=== PATIENT | male | born 1965 | race Caucasian/White ===

== ENCOUNTER 2021-06-07 10:50 | Inpatient (IN) | payer OTHER ==
[2021-06-07 11:24] VITALS: BMI 32.1
[2021-06-07] MEDS ORDERED: ONDANSETRON *ODT* 4 MG TABLET SL PRN (14:46)
[2021-06-07] MEDS ORDERED: MAGNESIUM HYDROX 2400MG/30ML ORAL SUSPENSION 30 ML CUP PO PRN (14:46)
[2021-06-07] MEDS ORDERED: ACETAMINOPHEN 325 MG TABLET (FP) PO PRN ×2 (14:46)
[2021-06-07] MEDS ORDERED: BISMUTH SUBSALICYLATE 524 MG/30 ML PO PRN (14:46)
[2021-06-07] MEDS ORDERED: MAGNESIUM CITRATE 300 ML BOTTLE PO PRN (14:46)
[2021-06-07] MEDS ORDERED: MAG HYDROX/AL HYDROX/SIMETH 30 ML UNIT-DOSE CUP PO PRN (14:46)
[2021-06-07] MEDS ORDERED: MENTHOL/PHENOL 1 EACH UD MM PRN (14:46)
[2021-06-07] MEDS ORDERED: IBUPROFEN 400 MG TABLET (FP) PO PRN (14:46)
[2021-06-07] MEDS: hydrOXYzine PAMOATE 25 MG CAPSULE (FP) PO SCH ×2 (17:17→22:18)
[2021-06-07] MEDS: diazePAM 5 MG TABLET PO SCH ×2 (17:17→22:18)
[2021-06-07] MEDS: MELATONIN 5 MG TABLETS PO SCH (22:17)
[2021-06-07] MEDS: THIAMINE HCL 100 MG TABLET (FP) PO SCH (22:17)
[2021-06-08] MEDS ORDERED: methaDONE HCL 40 MG DISPERSABLE TABLET ONE (04:22)
[2021-06-08] MEDS ORDERED: methaDONE HCL 10 MG TABLET ONE (04:22)
[2021-06-08] MEDS: hydrOXYzine PAMOATE 25 MG CAPSULE (FP) PO SCH ×5 (05:20→22:27)
[2021-06-08] MEDS: diazePAM 5 MG TABLET PO SCH ×4 (05:20→22:27)
[2021-06-08] MEDS ORDERED: methaDONE HCL 10 MG TABLET PO SCH (06:00)
[2021-06-08] MEDS: PRENATAL VITAMINS W/ FOLIC ACID TABLET (FP) PO SCH (10:23)
[2021-06-08] MEDS ORDERED: PNEUMOCOCCAL 23 VACCINE 0.5 ML VIAL IM ONE (12:00)
[2021-06-08] MEDS ORDERED: PNEUMOC 13-VAL CONJ-DIP CRM/PF 0.5 ML DISP.SYRIN IM ONE (12:00)
[2021-06-08 14:58] LABS: HEMATOCRIT 41.6 % (35.4-49); HEMOGLOBIN 14.4 GM/dL (11.7-16.9); MCHC 34.6 g/dl (32.0-35.9); MEAN CELL VOLUME 89.4 fl (80-96); MEAN PLT VOLUME 9.6 fl (7.5-11.1); PLATELET COUNT 192 10^3/uL (134-434); RBC 4.65 M/mm3 (4.00-5.60); RDW 14.6 % (11.9-15.9); WHITE BLOOD COUNT 6.9 K/mm3 (4.0-10.0)
[2021-06-08 15:04] LABS: CALCIUM 9.1 mg/dL (8.5-10.1)
[2021-06-08 15:05] LABS: ALBUMIN 3.8 g/dl (3.4-5.0)
[2021-06-08 15:09] LABS: BILIRUBIN,TOTAL 0.3 mg/dL (0.2-1)
[2021-06-08 15:10] LABS: TOT PROT 7.4 g/dl (6.4-8.2)
[2021-06-08] MEDS: METHOCARBAMOL 500 MG TABLET PO PRN (21:00)
[2021-06-08] MEDS: MELATONIN 5 MG TABLETS PO SCH (22:27)
[2021-06-08] MEDS: THIAMINE HCL 100 MG TABLET (FP) PO SCH (22:27)
[2021-06-09] MEDS ORDERED: methaDONE HCL 40 MG DISPERSABLE TABLET ONE (04:23)
[2021-06-09] MEDS ORDERED: methaDONE HCL 10 MG TABLET ONE (04:23)
[2021-06-09] MEDS: METHOCARBAMOL 500 MG TABLET PO PRN ×2 (05:23→17:40)
[2021-06-09] MEDS: hydrOXYzine PAMOATE 25 MG CAPSULE (FP) PO SCH ×5 (05:23→22:24)
[2021-06-09] MEDS: diazePAM 5 MG TABLET PO SCH ×3 (05:23→22:24)
[2021-06-09] MEDS: PRENATAL VITAMINS W/ FOLIC ACID TABLET (FP) PO SCH (10:29)
[2021-06-09] MEDS: diazePAM 5 MG TABLET PO PRN (17:41)
[2021-06-09] MEDS: MELATONIN 5 MG TABLETS PO SCH (22:24)
[2021-06-09] MEDS: THIAMINE HCL 100 MG TABLET (FP) PO SCH (22:24)
[2021-06-10] MEDS ORDERED: methaDONE HCL 10 MG TABLET ONE (05:05)
[2021-06-10] MEDS ORDERED: methaDONE HCL 40 MG DISPERSABLE TABLET ONE (05:05)
[2021-06-10] MEDS: hydrOXYzine PAMOATE 25 MG CAPSULE (FP) PO SCH ×5 (05:26→22:06)
[2021-06-10] MEDS: diazePAM 5 MG TABLET PO SCH ×2 (05:26→17:47)
[2021-06-10] MEDS: PRENATAL VITAMINS W/ FOLIC ACID TABLET (FP) PO SCH (10:06)
[2021-06-10] MEDS: diazePAM 5 MG TABLET PO PRN (10:07)
[2021-06-10] MEDS: THIAMINE HCL 100 MG TABLET (FP) PO SCH (22:07)
[2021-06-10] MEDS: METHOCARBAMOL 500 MG TABLET PO PRN (22:07)
[2021-06-10] MEDS: MELATONIN 5 MG TABLETS PO SCH (22:07)
[2021-06-11] MEDS ORDERED: methaDONE HCL 40 MG DISPERSABLE TABLET ONE (04:34)
[2021-06-11] MEDS ORDERED: methaDONE HCL 10 MG TABLET ONE (04:34)
[2021-06-11] MEDS: hydrOXYzine PAMOATE 25 MG CAPSULE (FP) PO SCH (05:13)
[2021-06-11] MEDS ORDERED: diazePAM 5 MG TABLET PO ONE (06:00)
[2021-06-11 09:13] VITALS: BP 127/72; PULSE 84; TEMP 96.8
== END 2021-06-11 10:03 | disposition home or self-care (01) | DRG 773 ==
LOC: YASAS 10:50 → Y3N 14:57
PROVIDERS: ADMIT Allergy & Immunology; ATTEND Allergy & Immunology
PROC: HZ2ZZZZ Detoxification Services for Substance Abuse Treatment (ICD-10-PCS; principal; 2021-06-07)
DX: F10.230 Alcohol dependence with withdrawal, uncomplicated (principal); F13.20 Sedative, hypnotic or anxiolytic dependence, uncomplicated; F11.20 Opioid dependence, uncomplicated; F19.280 Other psychoactive substance dependence with psychoactive substance-induced anxiety disorder; F51.05 Insomnia due to other mental disorder; F41.9 Anxiety disorder, unspecified
CPT/HCPCS: 36415; 80053; 85027; 86780; C9803; U0003; U0005

== ENCOUNTER 2022-03-11 12:41 | Inpatient (IN) | payer OTHER ==
[2022-03-11 13:33] VITALS: BMI 27.3
[2022-03-11] MEDS ORDERED: MAG HYDROX/AL HYDROX/SIMETH 30 ML UNIT-DOSE CUP PO PRN (15:35)
[2022-03-11] MEDS ORDERED: IBUPROFEN 400 MG TABLET (FP) PO PRN (15:35)
[2022-03-11] MEDS ORDERED: LOPERAMIDE HCL 2 MG CAPSULE PO PRN (15:35)
[2022-03-11] MEDS ORDERED: ONDANSETRON *ODT* 4 MG TABLET SL PRN (15:35)
[2022-03-11] MEDS ORDERED: MAGNESIUM HYDROX 2400MG/30ML ORAL SUSPENSION 30 ML CUP PO PRN (15:35)
[2022-03-11] MEDS ORDERED: MAGNESIUM CITRATE 300 ML BOTTLE PO PRN (15:35)
[2022-03-11] MEDS ORDERED: BISMUTH SUBSALICYLATE 262 MG/15 ML BTL PO PRN (15:35)
[2022-03-11] MEDS ORDERED: NICOTINE 10 MG CARTRIDGE (INHALER) IH PRN (15:35)
[2022-03-11] MEDS ORDERED: BENZOCAINE/MENTHOL (CHLORASEPTIC ) LOZENGE MM PRN (15:35)
[2022-03-11] MEDS ORDERED: ACETAMINOPHEN 325 MG TABLET (FP) PO PRN (15:35)
[2022-03-11] MEDS ORDERED: DICYCLOMINE HCL 10 MG CAPSULE PO PRN (15:35)
[2022-03-11] MEDS: hydrOXYzine PAMOATE 25 MG CAPSULE (FP) PO SCH ×2 (18:18→22:45)
[2022-03-11] MEDS: PRENATAL VITAMINS W/ FOLIC ACID TABLET (FP) PO SCH (18:18)
[2022-03-11] MEDS: diazePAM 5 MG TABLET PO SCH (22:45)
[2022-03-11] MEDS: MELATONIN 5 MG TABLETS PO SCH (22:45)
[2022-03-11] MEDS: THIAMINE HCL 100 MG TABLET (FP) PO SCH (22:45)
[2022-03-12] MEDS: diazePAM 5 MG TABLET PO SCH ×4 (05:41→22:18)
[2022-03-12] MEDS: hydrOXYzine PAMOATE 25 MG CAPSULE (FP) PO SCH ×5 (05:41→22:17)
[2022-03-12] MEDS ORDERED: methaDONE HCL 10 MG TABLET PO SCH (09:30)
[2022-03-12] MEDS: PRENATAL VITAMINS W/ FOLIC ACID TABLET (FP) PO SCH (10:11)
[2022-03-12 12:01] LABS: HEMATOCRIT 39.8 % (35.4-49); HEMOGLOBIN 13.4 GM/dL (11.7-16.9); MCH 29.8 pg (25.7-33.7); MCHC 33.6 g/dl (32.0-35.9); MEAN CELL VOLUME 88.6 fl (80-96); MEAN PLT VOLUME 9.2 fl (7.5-11.1); PLATELET COUNT 192 10^3/uL (134-434); RDW 13.5 % (11.9-15.9); WHITE BLOOD COUNT 4.6 K/mm3 (4.0-10.0)
[2022-03-12 12:18] LABS: ALBUMIN 3.3 g/dl (3.4-5.0); BLOOD UREA NITROGEN 14.8 mg/dL (7-18)
[2022-03-12 12:21] LABS: CREATININE 0.9 mg/dL (0.55-1.3)
[2022-03-12 12:23] LABS: BILIRUBIN,TOTAL 0.6 mg/dL (0.2-1); TOT PROT 6.8 g/dl (6.4-8.2)
[2022-03-12] MEDS: MIRTAZAPINE 15 MG TABLET (FP) PO SCH (22:17)
[2022-03-12] MEDS: THIAMINE HCL 100 MG TABLET (FP) PO SCH (22:17)
[2022-03-12] MEDS: MELATONIN 5 MG TABLETS PO SCH (22:18)
[2022-03-13] MEDS: diazePAM 5 MG TABLET PO SCH ×3 (05:14→22:14)
[2022-03-13] MEDS: hydrOXYzine PAMOATE 25 MG CAPSULE (FP) PO SCH ×5 (05:14→22:13)
[2022-03-13] MEDS: PRENATAL VITAMINS W/ FOLIC ACID TABLET (FP) PO SCH (10:25)
[2022-03-13] MEDS: diazePAM 5 MG TABLET PO PRN ×2 (10:26→17:39)
[2022-03-13] MEDS: busPIRone HCL 10 MG TABLET (FP) PO SCH (10:26)
[2022-03-13] MEDS: MIRTAZAPINE 15 MG TABLET (FP) PO SCH (22:13)
[2022-03-13] MEDS: MELATONIN 5 MG TABLETS PO SCH (22:13)
[2022-03-13] MEDS: THIAMINE HCL 100 MG TABLET (FP) PO SCH (22:13)
[2022-03-14] MEDS: hydrOXYzine PAMOATE 25 MG CAPSULE (FP) PO SCH ×5 (05:55→22:57)
[2022-03-14] MEDS: diazePAM 5 MG TABLET PO SCH ×2 (05:55→17:43)
[2022-03-14] MEDS: busPIRone HCL 10 MG TABLET (FP) PO SCH (10:27)
[2022-03-14] MEDS: PRENATAL VITAMINS W/ FOLIC ACID TABLET (FP) PO SCH (10:27)
[2022-03-14] MEDS: diazePAM 5 MG TABLET PO PRN (10:28)
[2022-03-14] MEDS: IBUPROFEN 600 MG TABLET (FP) PO PRN (12:48)
[2022-03-14] MEDS: ACETAMINOPHEN 325 MG TABLET (FP) PO PRN (17:44)
[2022-03-14] MEDS: THIAMINE HCL 100 MG TABLET (FP) PO SCH (22:57)
[2022-03-14] MEDS: MELATONIN 5 MG TABLETS PO SCH (22:57)
[2022-03-14] MEDS: METHOCARBAMOL 500 MG TABLET PO PRN (22:57)
[2022-03-14] MEDS: MIRTAZAPINE 15 MG TABLET (FP) PO SCH (22:57)
[2022-03-15] MEDS: hydrOXYzine PAMOATE 25 MG CAPSULE (FP) PO SCH ×5 (05:43→22:16)
[2022-03-15] MEDS ORDERED: diazePAM 5 MG TABLET PO ONE ×2 (06:00→22:00)
[2022-03-15] MEDS: busPIRone HCL 10 MG TABLET (FP) PO SCH (10:28)
[2022-03-15] MEDS: PRENATAL VITAMINS W/ FOLIC ACID TABLET (FP) PO SCH (10:28)
[2022-03-15] MEDS: ACETAMINOPHEN 325 MG TABLET (FP) PO PRN (10:52)
[2022-03-15 12:55] VITALS: RESP 18
[2022-03-15] MEDS: MELATONIN 5 MG TABLETS PO SCH (22:16)
[2022-03-15] MEDS: MIRTAZAPINE 15 MG TABLET (FP) PO SCH (22:16)
[2022-03-15] MEDS: THIAMINE HCL 100 MG TABLET (FP) PO SCH (22:16)
[2022-03-16] MEDS: hydrOXYzine PAMOATE 25 MG CAPSULE (FP) PO SCH ×2 (05:41→10:40)
[2022-03-16] MEDS: METHOCARBAMOL 500 MG TABLET PO PRN (05:46)
[2022-03-16 09:13] VITALS: BP 123/73; PULSE 74; TEMP 98.1
[2022-03-16] MEDS: PRENATAL VITAMINS W/ FOLIC ACID TABLET (FP) PO SCH (10:38)
[2022-03-16] MEDS: busPIRone HCL 10 MG TABLET (FP) PO SCH (10:38)
[2022-03-16] MEDS: IBUPROFEN 600 MG TABLET (FP) PO PRN (10:40)
== END 2022-03-16 12:40 | disposition other institution (70) | DRG 773 ==
LOC: YASAS 12:41 → SUATTDRO 12:41 → Y6N 15:40 → Y3N 15:46
PROVIDERS: ADMIT Allergy & Immunology; ATTEND Surgery
PROC: HZ2ZZZZ Detoxification Services for Substance Abuse Treatment (ICD-10-PCS; principal; 2022-03-11)
DX: F11.23 Opioid dependence with withdrawal (principal); F10.230 Alcohol dependence with withdrawal, uncomplicated; F13.20 Sedative, hypnotic or anxiolytic dependence, uncomplicated; F17.210 Nicotine dependence, cigarettes, uncomplicated; F19.280 Other psychoactive substance dependence with psychoactive substance-induced anxiety disorder; F19.24 Other psychoactive substance dependence with psychoactive substance-induced mood disorder; F41.9 Anxiety disorder, unspecified; F32.A Depression, unspecified
CPT/HCPCS: 36415; 80053; 85027; 86780; C9803-CS; U0003; U0005

== ENCOUNTER 2022-03-16 12:39 | Inpatient (IN) | payer OTHER ==
[2022-03-16] MEDS ORDERED: P-EPHED 60MG/TRIPROLIDI 2.5MG TABLET PO PRN (13:46)
[2022-03-16] MEDS ORDERED: MAG HYDROX/AL HYDROX/SIMETH 30 ML UNIT-DOSE CUP PO PRN (13:46)
[2022-03-16] MEDS ORDERED: MAGNESIUM CITRATE 300 ML BOTTLE PO PRN (13:46)
[2022-03-16] MEDS ORDERED: BENZOCAINE/MENTHOL (CHLORASEPTIC ) LOZENGE MM PRN (13:46)
[2022-03-16] MEDS ORDERED: guaiFENesin 200 MG/10 ML 10 ML UNIT-DOSE CUPS PO PRN (13:46)
[2022-03-16] MEDS ORDERED: LOPERAMIDE HCL 2 MG CAPSULE PO PRN (13:46)
[2022-03-16] MEDS ORDERED: ACETAMINOPHEN 325 MG TABLET (FP) PO PRN (13:46)
[2022-03-16] MEDS ORDERED: MAGNESIUM HYDROX 2400MG/30ML ORAL SUSPENSION 30 ML CUP PO PRN (13:46)
[2022-03-16] MEDS: THIAMINE HCL 100 MG TABLET (FP) PO SCH (21:06)
[2022-03-16] MEDS: MIRTAZAPINE 15 MG TABLET (FP) PO SCH (21:06)
[2022-03-16] MEDS: MELATONIN 5 MG TABLETS PO SCH (21:06)
[2022-03-17] MEDS ORDERED: methaDONE HCL 40 MG DISPERSABLE TABLET PO SCH (10:00)
[2022-03-17] MEDS: busPIRone HCL 10 MG TABLET (FP) PO SCH (10:13)
[2022-03-17] MEDS: NICOTINE 7 MG/24 HOURS TOPICAL PATCH TD SCH (10:13)
[2022-03-17] MEDS: PRENATAL VITAMINS W/ FOLIC ACID TABLET (FP) PO SCH (10:13)
[2022-03-17] MEDS ORDERED: PNEUMOC 20-VAL CONJ-DIP CRM/PF 0.5 ML SYRINGE IM ONE (12:00)
[2022-03-17] MEDS: MIRTAZAPINE 15 MG TABLET (FP) PO SCH (21:25)
[2022-03-17] MEDS: THIAMINE HCL 100 MG TABLET (FP) PO SCH (21:25)
[2022-03-17] MEDS: MELATONIN 5 MG TABLETS PO SCH (21:25)
[2022-03-17] MEDS: hydrOXYzine PAMOATE 25 MG CAPSULE (FP) PO PRN (21:26)
[2022-03-18] MEDS: hydrOXYzine PAMOATE 25 MG CAPSULE (FP) PO PRN ×2 (06:27→21:33)
[2022-03-18] MEDS: NICOTINE 7 MG/24 HOURS TOPICAL PATCH TD SCH (10:32)
[2022-03-18] MEDS: PRENATAL VITAMINS W/ FOLIC ACID TABLET (FP) PO SCH (10:32)
[2022-03-18] MEDS: busPIRone HCL 10 MG TABLET (FP) PO SCH (10:32)
[2022-03-18] MEDS: THIAMINE HCL 100 MG TABLET (FP) PO SCH (21:31)
[2022-03-18] MEDS: MIRTAZAPINE 15 MG TABLET (FP) PO SCH (21:33)
[2022-03-18] MEDS: MELATONIN 5 MG TABLETS PO SCH (21:34)
[2022-03-19] MEDS: hydrOXYzine PAMOATE 25 MG CAPSULE (FP) PO PRN ×2 (10:05→21:32)
[2022-03-19] MEDS: PRENATAL VITAMINS W/ FOLIC ACID TABLET (FP) PO SCH (10:05)
[2022-03-19] MEDS: busPIRone HCL 10 MG TABLET (FP) PO SCH (10:05)
[2022-03-19] MEDS: NICOTINE 7 MG/24 HOURS TOPICAL PATCH TD SCH (10:05)
[2022-03-19] MEDS: MELATONIN 5 MG TABLETS PO SCH (21:32)
[2022-03-19] MEDS: MIRTAZAPINE 15 MG TABLET (FP) PO SCH (21:32)
[2022-03-19] MEDS: THIAMINE HCL 100 MG TABLET (FP) PO SCH (21:32)
[2022-03-20] MEDS: busPIRone HCL 10 MG TABLET (FP) PO SCH (10:16)
[2022-03-20] MEDS: PRENATAL VITAMINS W/ FOLIC ACID TABLET (FP) PO SCH (10:16)
[2022-03-20] MEDS: NICOTINE 7 MG/24 HOURS TOPICAL PATCH TD SCH (10:17)
[2022-03-20] MEDS: THIAMINE HCL 100 MG TABLET (FP) PO SCH (21:19)
[2022-03-20] MEDS: hydrOXYzine PAMOATE 25 MG CAPSULE (FP) PO PRN (21:19)
[2022-03-20] MEDS: MELATONIN 5 MG TABLETS PO SCH (21:19)
[2022-03-20] MEDS: MIRTAZAPINE 15 MG TABLET (FP) PO SCH (21:19)
[2022-03-21] MEDS: PRENATAL VITAMINS W/ FOLIC ACID TABLET (FP) PO SCH (10:22)
[2022-03-21] MEDS: NICOTINE 7 MG/24 HOURS TOPICAL PATCH TD SCH (10:23)
[2022-03-21] MEDS: busPIRone HCL 10 MG TABLET (FP) PO SCH (10:23)
[2022-03-21] MEDS: NICOTINE 10 MG CARTRIDGE (INHALER) IH PRN (10:24)
[2022-03-21] MEDS: hydrOXYzine PAMOATE 25 MG CAPSULE (FP) PO PRN (21:36)
[2022-03-21] MEDS: THIAMINE HCL 100 MG TABLET (FP) PO SCH (21:36)
[2022-03-21] MEDS: MELATONIN 5 MG TABLETS PO SCH (21:36)
[2022-03-21] MEDS: MIRTAZAPINE 15 MG TABLET (FP) PO SCH (21:36)
[2022-03-22] MEDS: busPIRone HCL 10 MG TABLET (FP) PO SCH (10:10)
[2022-03-22] MEDS: PRENATAL VITAMINS W/ FOLIC ACID TABLET (FP) PO SCH (10:10)
[2022-03-22] MEDS: NICOTINE 7 MG/24 HOURS TOPICAL PATCH TD SCH (10:11)
[2022-03-22] MEDS: MELATONIN 5 MG TABLETS PO SCH (21:51)
[2022-03-22] MEDS: MIRTAZAPINE 15 MG TABLET (FP) PO SCH (21:51)
[2022-03-22] MEDS: THIAMINE HCL 100 MG TABLET (FP) PO SCH (21:51)
[2022-03-22] MEDS: hydrOXYzine PAMOATE 25 MG CAPSULE (FP) PO PRN (21:51)
[2022-03-23] MEDS: PRENATAL VITAMINS W/ FOLIC ACID TABLET (FP) PO SCH (10:23)
[2022-03-23] MEDS: NICOTINE 7 MG/24 HOURS TOPICAL PATCH TD SCH (10:23)
[2022-03-23] MEDS: busPIRone HCL 10 MG TABLET (FP) PO SCH (10:23)
[2022-03-23] MEDS: MELATONIN 5 MG TABLETS PO SCH (21:07)
[2022-03-23] MEDS: MIRTAZAPINE 15 MG TABLET (FP) PO SCH (21:07)
[2022-03-23] MEDS: THIAMINE HCL 100 MG TABLET (FP) PO SCH (21:07)
[2022-03-23] MEDS: hydrOXYzine PAMOATE 25 MG CAPSULE (FP) PO PRN (21:08)
[2022-03-24] MEDS: hydrOXYzine PAMOATE 25 MG CAPSULE (FP) PO PRN ×2 (06:21→21:33)
[2022-03-24] MEDS: busPIRone HCL 10 MG TABLET (FP) PO SCH (10:20)
[2022-03-24] MEDS: NICOTINE 7 MG/24 HOURS TOPICAL PATCH TD SCH (10:20)
[2022-03-24] MEDS: PRENATAL VITAMINS W/ FOLIC ACID TABLET (FP) PO SCH (10:20)
[2022-03-24] MEDS: MELATONIN 5 MG TABLETS PO SCH (21:33)
[2022-03-24] MEDS: MIRTAZAPINE 15 MG TABLET (FP) PO SCH (21:33)
[2022-03-24] MEDS: THIAMINE HCL 100 MG TABLET (FP) PO SCH (21:33)
[2022-03-25] MEDS: hydrOXYzine PAMOATE 25 MG CAPSULE (FP) PO PRN ×3 (06:18→21:11)
[2022-03-25] MEDS: NICOTINE 7 MG/24 HOURS TOPICAL PATCH TD SCH (09:52)
[2022-03-25] MEDS: PRENATAL VITAMINS W/ FOLIC ACID TABLET (FP) PO SCH (09:52)
[2022-03-25] MEDS: busPIRone HCL 10 MG TABLET (FP) PO SCH (09:52)
[2022-03-25] MEDS: NICOTINE 10 MG CARTRIDGE (INHALER) IH PRN (16:32)
[2022-03-25] MEDS: MIRTAZAPINE 15 MG TABLET (FP) PO SCH (21:10)
[2022-03-25] MEDS: THIAMINE HCL 100 MG TABLET (FP) PO SCH (21:10)
[2022-03-25] MEDS: MELATONIN 5 MG TABLETS PO SCH (21:10)
[2022-03-26] MEDS: hydrOXYzine PAMOATE 25 MG CAPSULE (FP) PO PRN ×2 (06:07→21:30)
[2022-03-26] MEDS: busPIRone HCL 10 MG TABLET (FP) PO SCH (09:46)
[2022-03-26] MEDS: NICOTINE 7 MG/24 HOURS TOPICAL PATCH TD SCH (09:46)
[2022-03-26] MEDS: PRENATAL VITAMINS W/ FOLIC ACID TABLET (FP) PO SCH (09:46)
[2022-03-26] MEDS: IBUPROFEN 400 MG TABLET (FP) PO PRN (19:01)
[2022-03-26] MEDS: MELATONIN 5 MG TABLETS PO SCH (21:30)
[2022-03-26] MEDS: THIAMINE HCL 100 MG TABLET (FP) PO SCH (21:30)
[2022-03-26] MEDS: MIRTAZAPINE 15 MG TABLET (FP) PO SCH (21:30)
[2022-03-27] MEDS: hydrOXYzine PAMOATE 25 MG CAPSULE (FP) PO PRN ×2 (06:03→21:46)
[2022-03-27] MEDS: PRENATAL VITAMINS W/ FOLIC ACID TABLET (FP) PO SCH (09:55)
[2022-03-27] MEDS: busPIRone HCL 10 MG TABLET (FP) PO SCH (09:55)
[2022-03-27] MEDS: NICOTINE 7 MG/24 HOURS TOPICAL PATCH TD SCH (09:56)
[2022-03-27] MEDS: MIRTAZAPINE 15 MG TABLET (FP) PO SCH (21:46)
[2022-03-27] MEDS: THIAMINE HCL 100 MG TABLET (FP) PO SCH (21:46)
[2022-03-27] MEDS: MELATONIN 5 MG TABLETS PO SCH (21:46)
[2022-03-28] MEDS: hydrOXYzine PAMOATE 25 MG CAPSULE (FP) PO PRN ×2 (06:11→21:30)
[2022-03-28] MEDS: PRENATAL VITAMINS W/ FOLIC ACID TABLET (FP) PO SCH (09:45)
[2022-03-28] MEDS: busPIRone HCL 10 MG TABLET (FP) PO SCH (09:45)
[2022-03-28] MEDS: NICOTINE 7 MG/24 HOURS TOPICAL PATCH TD SCH (09:45)
[2022-03-28] MEDS: MIRTAZAPINE 15 MG TABLET (FP) PO SCH (21:30)
[2022-03-28] MEDS: THIAMINE HCL 100 MG TABLET (FP) PO SCH (21:30)
[2022-03-28] MEDS: MELATONIN 5 MG TABLETS PO SCH (21:30)
[2022-03-29] MEDS: hydrOXYzine PAMOATE 25 MG CAPSULE (FP) PO PRN ×2 (06:20→21:15)
[2022-03-29] MEDS: NICOTINE 10 MG CARTRIDGE (INHALER) IH PRN (09:48)
[2022-03-29] MEDS: PRENATAL VITAMINS W/ FOLIC ACID TABLET (FP) PO SCH (09:48)
[2022-03-29] MEDS: busPIRone HCL 10 MG TABLET (FP) PO SCH (09:48)
[2022-03-29] MEDS: NICOTINE 7 MG/24 HOURS TOPICAL PATCH TD SCH (09:49)
[2022-03-29] MEDS: MELATONIN 5 MG TABLETS PO SCH (21:15)
[2022-03-29] MEDS: THIAMINE HCL 100 MG TABLET (FP) PO SCH (21:15)
[2022-03-29] MEDS: MIRTAZAPINE 15 MG TABLET (FP) PO SCH (21:15)
[2022-03-30] MEDS: hydrOXYzine PAMOATE 25 MG CAPSULE (FP) PO PRN ×3 (06:17→21:16)
[2022-03-30] MEDS: IBUPROFEN 400 MG TABLET (FP) PO PRN (06:19)
[2022-03-30] MEDS: NICOTINE 7 MG/24 HOURS TOPICAL PATCH TD SCH (10:02)
[2022-03-30] MEDS: busPIRone HCL 10 MG TABLET (FP) PO SCH (10:02)
[2022-03-30] MEDS: PRENATAL VITAMINS W/ FOLIC ACID TABLET (FP) PO SCH (10:02)
[2022-03-30] MEDS: MELATONIN 5 MG TABLETS PO SCH (21:16)
[2022-03-30] MEDS: THIAMINE HCL 100 MG TABLET (FP) PO SCH (21:16)
[2022-03-30] MEDS: MIRTAZAPINE 15 MG TABLET (FP) PO SCH (21:16)
[2022-03-31] MEDS ORDERED: methaDONE HCL 10 MG TABLET PO SCH (07:00)
[2022-03-31] MEDS: hydrOXYzine PAMOATE 25 MG CAPSULE (FP) PO PRN ×2 (07:06→21:27)
[2022-03-31] MEDS: NICOTINE 7 MG/24 HOURS TOPICAL PATCH TD SCH (10:30)
[2022-03-31] MEDS: busPIRone HCL 10 MG TABLET (FP) PO SCH (10:30)
[2022-03-31] MEDS: PRENATAL VITAMINS W/ FOLIC ACID TABLET (FP) PO SCH (10:30)
[2022-03-31] MEDS: THIAMINE HCL 100 MG TABLET (FP) PO SCH (21:25)
[2022-03-31] MEDS: MELATONIN 5 MG TABLETS PO SCH (21:25)
[2022-03-31] MEDS: MIRTAZAPINE 15 MG TABLET (FP) PO SCH (21:26)
[2022-04-01] MEDS: hydrOXYzine PAMOATE 25 MG CAPSULE (FP) PO PRN ×2 (06:08→21:37)
[2022-04-01] MEDS: NICOTINE 7 MG/24 HOURS TOPICAL PATCH TD SCH (10:28)
[2022-04-01] MEDS: busPIRone HCL 10 MG TABLET (FP) PO SCH (10:28)
[2022-04-01] MEDS: PRENATAL VITAMINS W/ FOLIC ACID TABLET (FP) PO SCH (10:28)
[2022-04-01] MEDS: THIAMINE HCL 100 MG TABLET (FP) PO SCH (21:37)
[2022-04-01] MEDS: MIRTAZAPINE 15 MG TABLET (FP) PO SCH (21:37)
[2022-04-01] MEDS: MELATONIN 5 MG TABLETS PO SCH (21:37)
[2022-04-01] MEDS: NICOTINE 10 MG CARTRIDGE (INHALER) IH PRN (21:37)
[2022-04-02] MEDS: hydrOXYzine PAMOATE 25 MG CAPSULE (FP) PO PRN ×4 (06:32→21:40)
[2022-04-02] MEDS: PRENATAL VITAMINS W/ FOLIC ACID TABLET (FP) PO SCH (09:56)
[2022-04-02] MEDS: busPIRone HCL 10 MG TABLET (FP) PO SCH (09:56)
[2022-04-02] MEDS: NICOTINE 7 MG/24 HOURS TOPICAL PATCH TD SCH (09:57)
[2022-04-02] MEDS: MIRTAZAPINE 15 MG TABLET (FP) PO SCH (21:40)
[2022-04-02] MEDS: MELATONIN 5 MG TABLETS PO SCH (21:40)
[2022-04-02] MEDS: THIAMINE HCL 100 MG TABLET (FP) PO SCH (21:40)
[2022-04-03] MEDS: hydrOXYzine PAMOATE 25 MG CAPSULE (FP) PO PRN ×3 (06:35→21:37)
[2022-04-03] MEDS: IBUPROFEN 400 MG TABLET (FP) PO PRN (06:35)
[2022-04-03] MEDS: PRENATAL VITAMINS W/ FOLIC ACID TABLET (FP) PO SCH (10:07)
[2022-04-03] MEDS: busPIRone HCL 10 MG TABLET (FP) PO SCH (10:07)
[2022-04-03] MEDS: NICOTINE 7 MG/24 HOURS TOPICAL PATCH TD SCH (10:08)
[2022-04-03] MEDS: THIAMINE HCL 100 MG TABLET (FP) PO SCH (21:37)
[2022-04-03] MEDS: MIRTAZAPINE 15 MG TABLET (FP) PO SCH (21:37)
[2022-04-03] MEDS: MELATONIN 5 MG TABLETS PO SCH (21:37)
[2022-04-04] MEDS: hydrOXYzine PAMOATE 25 MG CAPSULE (FP) PO PRN ×4 (06:03→21:13)
[2022-04-04] MEDS: IBUPROFEN 400 MG TABLET (FP) PO PRN (06:03)
[2022-04-04] MEDS: PRENATAL VITAMINS W/ FOLIC ACID TABLET (FP) PO SCH (10:28)
[2022-04-04] MEDS: NICOTINE 7 MG/24 HOURS TOPICAL PATCH TD SCH (10:28)
[2022-04-04] MEDS: busPIRone HCL 10 MG TABLET (FP) PO SCH (10:28)
[2022-04-04] MEDS: MIRTAZAPINE 15 MG TABLET (FP) PO SCH (21:12)
[2022-04-04] MEDS: THIAMINE HCL 100 MG TABLET (FP) PO SCH (21:12)
[2022-04-04] MEDS: MELATONIN 5 MG TABLETS PO SCH (21:12)
[2022-04-05] MEDS: hydrOXYzine PAMOATE 25 MG CAPSULE (FP) PO PRN ×3 (06:10→21:39)
[2022-04-05] MEDS: NICOTINE 7 MG/24 HOURS TOPICAL PATCH TD SCH (10:25)
[2022-04-05] MEDS: busPIRone HCL 10 MG TABLET (FP) PO SCH (10:25)
[2022-04-05] MEDS: PRENATAL VITAMINS W/ FOLIC ACID TABLET (FP) PO SCH (10:25)
[2022-04-05] MEDS: MELATONIN 5 MG TABLETS PO SCH (21:39)
[2022-04-05] MEDS: MIRTAZAPINE 15 MG TABLET (FP) PO SCH (21:39)
[2022-04-05] MEDS: THIAMINE HCL 100 MG TABLET (FP) PO SCH (21:39)
[2022-04-06] MEDS: hydrOXYzine PAMOATE 25 MG CAPSULE (FP) PO PRN ×3 (06:38→21:21)
[2022-04-06 07:04] VITALS: RESP 18
[2022-04-06] MEDS: PRENATAL VITAMINS W/ FOLIC ACID TABLET (FP) PO SCH (10:17)
[2022-04-06] MEDS: busPIRone HCL 10 MG TABLET (FP) PO SCH (10:17)
[2022-04-06] MEDS: NICOTINE 7 MG/24 HOURS TOPICAL PATCH TD SCH (10:17)
[2022-04-06] MEDS: THIAMINE HCL 100 MG TABLET (FP) PO SCH (21:21)
[2022-04-06] MEDS: MIRTAZAPINE 15 MG TABLET (FP) PO SCH (21:21)
[2022-04-06] MEDS: MELATONIN 5 MG TABLETS PO SCH (21:21)
[2022-04-07] MEDS: hydrOXYzine PAMOATE 25 MG CAPSULE (FP) PO PRN ×3 (06:11→21:02)
[2022-04-07] MEDS: PRENATAL VITAMINS W/ FOLIC ACID TABLET (FP) PO SCH (10:12)
[2022-04-07] MEDS: NICOTINE 7 MG/24 HOURS TOPICAL PATCH TD SCH (10:12)
[2022-04-07] MEDS: busPIRone HCL 10 MG TABLET (FP) PO SCH (10:12)
[2022-04-07] MEDS: MELATONIN 5 MG TABLETS PO SCH (21:02)
[2022-04-07] MEDS: MIRTAZAPINE 15 MG TABLET (FP) PO SCH (21:02)
[2022-04-07] MEDS: THIAMINE HCL 100 MG TABLET (FP) PO SCH (21:02)
[2022-04-08] MEDS: hydrOXYzine PAMOATE 25 MG CAPSULE (FP) PO PRN ×3 (06:18→21:23)
[2022-04-08] MEDS: PRENATAL VITAMINS W/ FOLIC ACID TABLET (FP) PO SCH (10:20)
[2022-04-08] MEDS: NICOTINE 7 MG/24 HOURS TOPICAL PATCH TD SCH (10:20)
[2022-04-08] MEDS: busPIRone HCL 10 MG TABLET (FP) PO SCH (10:20)
[2022-04-08] MEDS: MIRTAZAPINE 15 MG TABLET (FP) PO SCH (21:23)
[2022-04-08] MEDS: MELATONIN 5 MG TABLETS PO SCH (21:23)
[2022-04-08] MEDS: THIAMINE HCL 100 MG TABLET (FP) PO SCH (21:23)
[2022-04-09] MEDS: hydrOXYzine PAMOATE 25 MG CAPSULE (FP) PO PRN ×3 (06:09→21:21)
[2022-04-09] MEDS: NICOTINE 7 MG/24 HOURS TOPICAL PATCH TD SCH (10:29)
[2022-04-09] MEDS: PRENATAL VITAMINS W/ FOLIC ACID TABLET (FP) PO SCH (10:29)
[2022-04-09] MEDS: busPIRone HCL 10 MG TABLET (FP) PO SCH (10:30)
[2022-04-09] MEDS: MELATONIN 5 MG TABLETS PO SCH (21:21)
[2022-04-09] MEDS: MIRTAZAPINE 15 MG TABLET (FP) PO SCH (21:21)
[2022-04-09] MEDS: THIAMINE HCL 100 MG TABLET (FP) PO SCH (21:21)
[2022-04-10] MEDS: hydrOXYzine PAMOATE 25 MG CAPSULE (FP) PO PRN ×3 (06:29→21:19)
[2022-04-10] MEDS: PRENATAL VITAMINS W/ FOLIC ACID TABLET (FP) PO SCH (10:50)
[2022-04-10] MEDS: busPIRone HCL 10 MG TABLET (FP) PO SCH (10:50)
[2022-04-10] MEDS: NICOTINE 7 MG/24 HOURS TOPICAL PATCH TD SCH (10:50)
[2022-04-10] MEDS: MIRTAZAPINE 15 MG TABLET (FP) PO SCH (21:19)
[2022-04-10] MEDS: MELATONIN 5 MG TABLETS PO SCH (21:19)
[2022-04-10] MEDS: THIAMINE HCL 100 MG TABLET (FP) PO SCH (21:19)
[2022-04-11] MEDS: hydrOXYzine PAMOATE 25 MG CAPSULE (FP) PO PRN ×3 (06:22→21:17)
[2022-04-11] MEDS: PRENATAL VITAMINS W/ FOLIC ACID TABLET (FP) PO SCH (10:20)
[2022-04-11] MEDS: busPIRone HCL 10 MG TABLET (FP) PO SCH (10:20)
[2022-04-11] MEDS: NICOTINE 7 MG/24 HOURS TOPICAL PATCH TD SCH (10:21)
[2022-04-11] MEDS: MIRTAZAPINE 15 MG TABLET (FP) PO SCH (21:17)
[2022-04-11] MEDS: THIAMINE HCL 100 MG TABLET (FP) PO SCH (21:17)
[2022-04-11] MEDS: MELATONIN 5 MG TABLETS PO SCH (21:17)
[2022-04-12] MEDS: hydrOXYzine PAMOATE 25 MG CAPSULE (FP) PO PRN ×3 (06:11→21:20)
[2022-04-12] MEDS: PRENATAL VITAMINS W/ FOLIC ACID TABLET (FP) PO SCH (09:57)
[2022-04-12] MEDS: NICOTINE 7 MG/24 HOURS TOPICAL PATCH TD SCH (09:57)
[2022-04-12] MEDS: busPIRone HCL 10 MG TABLET (FP) PO SCH (09:57)
[2022-04-12] MEDS: THIAMINE HCL 100 MG TABLET (FP) PO SCH (21:20)
[2022-04-12] MEDS: MIRTAZAPINE 15 MG TABLET (FP) PO SCH (21:20)
[2022-04-12] MEDS: MELATONIN 5 MG TABLETS PO SCH (21:21)
[2022-04-13] MEDS: hydrOXYzine PAMOATE 25 MG CAPSULE (FP) PO PRN (05:57)
[2022-04-13 07:25] VITALS: BP 134/88; PULSE 57; TEMP 96.8
[2022-04-13] MEDS: PRENATAL VITAMINS W/ FOLIC ACID TABLET (FP) PO SCH (09:16)
[2022-04-13] MEDS: busPIRone HCL 10 MG TABLET (FP) PO SCH (09:16)
[2022-04-13] MEDS: NICOTINE 7 MG/24 HOURS TOPICAL PATCH TD SCH (09:16)
== END 2022-04-13 09:30 | disposition home or self-care (01) | DRG 772 ==
LOC: YASAS 12:39 → Y3W 12:40
PROVIDERS: ADMIT Allergy & Immunology; ATTEND Psychiatry & Neurology Pain Medicine
PROC: HZ42ZZZ Group Counseling for Substance Abuse Treatment, Cognitive-Behavioral (ICD-10-PCS; principal; 2022-03-16)
DX: F11.20 Opioid dependence, uncomplicated (principal); F10.20 Alcohol dependence, uncomplicated; F13.20 Sedative, hypnotic or anxiolytic dependence, uncomplicated; F17.210 Nicotine dependence, cigarettes, uncomplicated; F19.280 Other psychoactive substance dependence with psychoactive substance-induced anxiety disorder; F19.24 Other psychoactive substance dependence with psychoactive substance-induced mood disorder; F51.05 Insomnia due to other mental disorder; F41.8 Other specified anxiety disorders; F32.A Depression, unspecified; G47.00 Insomnia, unspecified
CPT/HCPCS: 90677